=== PATIENT | female | born 1995 | race Caucasian/White ===

== ENCOUNTER 2020-06-04 07:47 | Emergency (ER) | payer BC ==
[~2020-06-04] VITALS: Ht 170.2 cm; Wt 74.8 kg
[2020-06-04 08:18] LABS: URINE BILIRUBIN NEGATIVE (Negative); URINE BLOOD TRACE (Negative); URINE CLARITY CLEAR; URINE COLOR YELLOW; URINE GLUCOSE-RANDOM* NEGATIVE (Negative); URINE KETONES NEGATIVE (Negative); URINE LEUKOCYTES-REFLEX TRACE (Negative); URINE NITRITE-REFLEX NEGATIVE (Negative); URINE PROTEIN (DIPSTICK) NEGATIVE (Negative); URINE UROBILINOGEN 0.2 E.U./dl (0.2-1.0)
[2020-06-04] MEDS ORDERED: VYVANSE30 M1 PO (08:50)
[2020-06-04] MEDS ORDERED: PROZAC 10 MG CA10 MG PO (08:50)
[2020-06-04 08:56] LABS: ABSOLUTE NEUTROPHILS 7.3 thou/uL (1.4-8.2); BASOPHILS 0.8 % (0.0-2.0); EOSINOPHILS 0.8 % (0.0-3.0); HEMATOCRIT 39.9 % (37.0-47.0); HEMOGLOBIN 13.4 gm/dL (12.0-15.0); MCHC 33.5 g/dL (28.0-37.0); MCV 95.5 fL (80.0-100.0); MONOCYTES 5.6 % (1.0-8.0); PLATELET COUNT 239 thou/uL (150-400); POLYS 67.8 % (36.0-66.0); RBC 4.18 mil/uL (4.20-5.00); WBC 10.8 thou/uL (4.0-11.0)
[2020-06-04 09:01] LABS: CALCIUM 9.2 mg/dL (8.5-10.1); CREATININE 0.8 mg/dL (0.6-1.0); POTASSIUM 3.4 mmol/L (3.5-5.1)
[2020-06-04 09:05] LABS: TOTAL BILIRUBIN 1.1 mg/dL (0.2-1.0); TOTAL PROTEIN 7.4 g/dL (6.4-8.2)
[2020-06-04 10:56] VITALS: BP 93/54
== END 2020-06-04 10:56 | disposition home or self-care (01) ==
LOC: ER 07:47
PROVIDERS: Emergency Medicine
DX: R10.2 Pelvic and perineal pain (principal); Z79.899 Other long term (current) drug therapy

== ENCOUNTER → 2020-07-27 | Outpatient (CLI) | payer OTHER, BC ==
[~2020-07-27] MED LIST: PROZAC 10 MG CA10 MG PO; VYVANSE30 M1 PO
== END ==
LOC: RAD 11:17
PROVIDERS: ATTEND Nurse Practitioner
DX: M54.2 Cervicalgia (principal)